=== PATIENT | male | born 1950 | race Caucasian/White ===

== ENCOUNTER → 2022-06-10 | Outpatient (CLI) | payer SELFPAY ==
[2022-06-10 13:02] LABS: AST(SGOT) 14 U/L (15-37); Alanine Aminotransfer ALT/SGPT 25 U/L (16-61); Albumin, Serum 3.5 g/dL (3.2-5.0); Alkaline Phosphatase 86 U/L (45-117); Anion Gap 3 (5-15); BUN 15 mg/dL (7-18); BUN/Creat Ratio 17.5 RATIO (10-20); Calcium,Total 9.3 mg/dL (8.5-10.1); Chloride 106 mmol/L (98-107); Cholesterol 272 mg/dL (200); Creatinine, Serum 0.86 mg/dL (0.70-1.30); EST Glomerular Filtration Rate 93 mL/min (>60); Est Glom Filt Rate - Afr Amer 112 mL/min (>60); Globulin 3.4 g/dL (2.2-4.2); Glucose 94 mg/dL (74-106); High Density Lipoprotein 71 mg/dL; Potassium 4.4 mmol/L (3.5-5.1); Protein, Total 6.9 g/dL (6.4-8.2); Sodium Level 140 mmol/L (136-145); Triglycerides 128 mg/dL; Very Low Density Lipoprotein 26 mg/dL (5-40)
== END | disposition home or self-care (01) ==
LOC: BIMLAB 10:59
PROVIDERS: PCP Internal Medicine; Referring Provider Internal Medicine; Visit Provider Internal Medicine
DX: I10 Essential (primary) hypertension (principal); E78.2 Mixed hyperlipidemia
CPT/HCPCS: 36415; 80053; 80061

== ENCOUNTER 2025-02-10 19:39 | Emergency (ER) | payer OTHER, SELFPAY ==
[2025-02-10 19:39] VITALS: BP 152/89; PULSE 59; RESP 16; TEMP 36.7; O2SAT 98; BMI 22.0
[2025-02-10 21:39] VITALS: BP 122/97; PULSE 58; O2SAT 97
--- NOTE | 2025-02-10 22:15 | EX.ED.DYSGE1 ---
HPI History of Present Illness Chief Complaint: Hypertension Narrative Narrative: Chief complaint and HPI: 74-year-old male with past medical history of HTN presents for evaluation of HTN. Patient states that he follows regularly with his primary care physician. He states he was diagnosed with hypertension about a year ago. States he is prescribed lisinopril 5 mg daily. Patient states originally he was not taking his lisinopril daily and instead taking only 3 pills a week. He told his primary care physician about this at the last appointment. Patient states since last appointment he has noticed his blood pressure has been more elevated daily and now is taking the medication as prescribed. He said given this information he will run out of his prescription before seeing his primary care physician in March. He states that the highest his SBP has been in is the 160s. Patient states that he is leaving for out of town next week and is worried about running out of medication while out of town and not being able to contact his physician. States he tried to contact her this week and did not hear anything back. He denies any fever, chills, shortness of breath, chest pain, abdominal pain, nausea, vomiting, headache, dizziness. Patient states when he takes his lisinopril regularly his blood pressure does improve. Review of systems: See HPI Medications: As listed on the chart Allergies: As listed on the chart PFSH: Per chart Vital signs: As listed on the chart. Reviewed. Physical exam: Gen: A&O x3, NAD Head: Normocephalic, atraumatic Eyes: No sclera icterus, conjunctiva clear ENT: Moist mucous membranes Neck: Trachea midline, No JVD CV: RRR, no murmurs, no peripheral edema Resp: Lungs CTA BL, no w/r/c GI: Abd soft, non-distended, non-tender, no r/r/g Musc: Full ROM, no deformity Skin: Warm, dry Neuro: Alert, oriented, grossly intact, sensation intact Psych: Cooperative, appropriate mood and affect [facility] Medical History Skin cancer Home Medications ?Medication ?Instructions ?Recorded ?Last Taken ?Type lisinopril 5 mg tablet 5 mg PO QDAY #30 tabs 02/09/25 Unknown Rx Allergy/AdvReac Type Severity Reaction Status Date / Time No Known Allergies Allergy Verified 02/10/25 19:40 Family History Mother Emphysema lung Father Prostate cancer Brother FH: kidney cancer Surgical History S/P skin cancer resection History of hernia surgery Social History adopted: No household members: spouse number of children: 4 current occupational status: employed current occupation: construction pets and animals: No sexually active: Yes Smoking Status: Never smoker Electronic Cigarette Use: not used alcohol intake: never substance use type: does not use what type of physical activity do you participate in: none jemima/adventist: Yarsanism do you feel safe at home: Yes EXAM Physical Exam Const Vital Signs: 02/10/25 19:39 02/10/25 21:39 02/10/25 21:51 Temperature 98.1 F Temperature Source Oral Pulse Rate 59 L 58 L Respiratory Rate 16 Respiratory Effort Normal Non-Labored Blood Pressure 152/89 H 122/97 H Blood Pressure Mean 110 105 Pulse Ox 98 97 Oxygen Delivery Method Room Air Room Air MDM MDM MDM Narrative Medical decision making narrative: 74-year-old male with past medical history of HTN presents for evaluation of HTN. Patient states that he follows regularly with his primary care physician. He states he was diagnosed with hypertension about a year ago. States he is prescribed lisinopril 5 mg daily. Patient states originally he was not taking his lisinopril daily and instead taking only 3 pills a week. He told his primary care physician about this at the last appointment. Patient states since last appointment he has noticed his blood pressure has been more elevated daily and now is taking the medication as prescribed. He said given this information he will run out of his prescription before seeing his primary care physician in March. He states that the highest his SBP has been in is the 160s. Patient states that he is leaving for out of town next week and is worried about running out of medication while out of town and not being able to contact his physician. States he tried to contact her this week and did not hear anything back. His blood pressure does improve with the regular lisinopril use. He currently is asymptomatic and denies any complaints. On presentation, patient's SBP in the 150s however now in the 120s. He is asymptomatic. At this point in time, I do not think any laboratory workup or imaging is needed. I will prescribe the patient with a 1 month refill of his lisinopril. He was told that he needs to check his blood pressure regularly. He needs to follow-up with his primary care physician. He needs to call the office tomorrow and let them know that I prescribed a refill. He confirmed understand the plan. Return precautions were explained. Patient able to discharge home. Impression: 1. Medication refill 2. Hypertension with history of hypertension Discharge Plan Triage Chief Complaint: Hypertension ED Provider: Demetri Mackey Dx/Rx/DC Orders Prescriptions: No Action lisinopril 5 mg tablet 5 mg PO QDAY Qty: 30 0RF Primary Care Provider: Cris Marquez Referrals: Cris Marquez MD [Primary Care Provider] - Print Language: Citizen Of [place]
[2025-02-10 22:28] VITALS: BP 120/87; PULSE 61; RESP 14; TEMP 36.7; O2SAT 99
--- OUTSIDE RECORDS SUMMARY | 2025-02-10 22:37 | XMS RPT_ITS | CCD ---
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 Cris Marquez Attending Provider Cris Marquez Referring Unavailable Cris Marquez Primary Care Unavailable Cris Marquez Attending Unavailable Cris Marquez Referring Unavailable Cris Marquez Primary Care Unavailable Cris Marquez Attending Unavailable Medications Current Medications Medication Drug Class(es) Dates Sig (Normalized) Sig (Original) Ascorbate Calcium (Vitamin C) (1 source) Start: 06-10-2022 take 500 mg by mouth once daily Ascorbate Calcium (Vitamin C) Active 500 MG PO DAILY June 10, 2022 12:00am Echinacea (1 source) Start: 06-10-2022 take 400 mg by mouth twice daily at mealtime Echinacea Active 400 MG PO TWICE A DAY June 10, 2022 12:00am administer with meals lisinopril 5 mg oral tablet (1 source) Angiotensin Converting Enzyme Inhibitor Start: 06-10-2022 take 5 mg by mouth once daily Lisinopril Active 5 MG PO DAILY 30 June 10, 2022 12:00am Vitamins A,C,E-Erdg-Bzxgbw (Preservision Areds) 14,320-226-200 zwvn-cz-wzwm capsule (1 source) Start: 06-10-2022 take 1 capsule by mouth once Vitamins A,C,A-Dsgi-Qmxqwc (Preservision Areds) 14,320-226-200 pkbv-cp-kdoy capsule Active 1 CAP PO ONCE June 10, 2022 12:00am Problems Active Problems Problem Classification Problem Date Documented Da te Episodic/Chronic Administrative/social admission (1 source) Persons encountering health services in other specified circumstances; Translations: [Other reasons for seeking consultation] 06-10-2022 Episodic Disorders of lipid metabolism (2 sources) Mixed hyperlipidemia; Translations: [Mixed hyperlipidemia] Onset: 11-26-2023 06-10-2022 Chronic Essential hypertension (3 sources) Hypertensive disorder; Translations: [Essential (primary) hypertension] Onset: 09-22-2024 06-10-2022 Chronic Other ear and sense organ disorders (1 source) Impacted cerumen; Translations: [Impacted cerumen, bilateral] 06-10-2022 Episodic Residual codes; unclassified (1 source) Immunization not carried out because of patient refusal; Translations: [Vaccination not carried out because of patient refusal] 06-10-2022 Episodic Past or Other Problems Problem Classification Problem Date Documented Da te Episodic/Chronic Other skin disorders (1 source) Disorder of the skin and subcutaneous tissue, unspecified; Translations: [Disorder of the skin and subcutaneous tissue, unspecified] Onset: 11-26-2023 Episodic Results Test Name Value Interpretation Reference Range Facility Office Visit Reporton 2024 Office Visit Report [facility] [address] [place] [address] OFFICE VISIT Date of Service: 09/07/24 MR#: [id number] Acct: [id number] Patient: JOSE GRECO Rep #: [id number] : 1950 Provider: RUTHANN NURSE Age/Sex: 74/M Location: [facility] Status: Signed Intake Vital Signs 11/09/23 08:30 09/07/24 08:22 09/07/24 08:22 09/07/24 08:36 Height 5 ft 7 in Weight: 137 lb BMI 21.4 BP 144/96 H 203/102 H 200/98 H 150/98 H Blood Pressure Location Lt brachial Lt brachial Lt brachial Lt brachial Position Sitting Sitting Sitting Sitting Respiration 14 Pulse 74 Pulse Source Monitor Temp 98.7 F Temp Source Temporal Pulse Oximetry (%) 99 Oxygen Delivery Method room air Comment machine Intake Visit Reasons: BP CHECK Chief Complaint: BLOOD PRESSURE CHECK UP Allergies No Known Allergies Allergy (Unverified 11/09/23 08:23) Have you fallen in the past year?: No Nurse's Note: Pt brought in cuff to compare accuracy. Pt's machine 203/102. My reading 200/98. Pt denies any sx's such as chest pain, blurry vision,flushing,di zziness, palpations, headaches. Previous readings shown to me on machine and states it is always much higher in office. systolic 130's-140's averaging/ diastolic 70's-80's. Todays morning reading prior to medication this morning 162/88 after taking medication and sitting for 15ish minutes 116/78. Pt sat for 10 minutes 150/98. Pt confirmed he was taking lisinopril as prescribed in the mornings. Assessment and Plan Assessment and Plan (1) High blood pressure: Status: Chronic Plan: Patient's blood pressure is high. It did improve with recheck. His home cuff reads pretty accurately. Encouraged him to take an extra dose of lisinopril when his systolic blood pressure reads above 140, which was previously discussed with him. He agreed. Will continue to monitor closely. Clinical Quality Measures Falls Risk Screening/Assistiv e Devices Have you fallen in the past year?: No 09/07/24 1313 Date Cris Marquez MD Cosigner Signature: Date (if applicable) CC: Normal [facility] Internal Medicine Office Vis caleb 11-05-2023 Internal Medicine Office Visit [facility] [address] [place] [address] [address] [place] [address] OFFICE VISIT Date of Service: 11/09/23 MR#: [id number] Acct: [id number] Name: JOSE GRECO Rep #: [id number] : 1950 Provider: Dr. Cris bateman MD Age/Sex: 73/M Location: [facility] Status: Signed Intake Vital Signs 07/21/22 08:37 11/09/23 08:30 11/09/23 09:08 Height 5 ft 7 in 5 ft 7 in Weight: 137 lb BMI 21.4 BP 144/96 H 170/98 H Blood Pressure Location Lt brachial Rt brachial Position Sitting Respiration 14 Pulse 74 Pulse Source Monitor Temp 98.7 F Temp Source Temporal Pulse Oximetry (%) 99 Oxygen Delivery Method room air Comment PCP aware Intake Visit Reasons: YEARLY Wildlife Veterinarian Required: No Is patient in pain?: No Allergies No Known Allergies Allergy (Unverified 11/09/23 08:23) Medications ???Medication ???Instructions ???Recorded ???Confirmed ???Type ascorbate calcium (vitamin C) 500 500 mg PO DAILY 06/10/22 11/09/23 History mg capsule echinacea 400 mg capsule 400 mg PO BID 06/10/22 11/09/23 History vitamins A,C,I-qmoa-wlwzoj 4,296 1 cap PO ONCE 06/10/22 11/09/23 History mcg-226 mg-90 mg capsule (PreserVision AREDS) lisinopril 5 mg tablet 5 mg PO .every other day #45 tabs 11/09/23 11/09/23 Rx PFSH Medical History Skin cancer Surgical History S/P skin cancer resection History of hernia surgery Family History Mother Emphysema lung Father Prostate cancer Brother FH: kidney cancer Social History adopted: No household members: spouse number of children: 4 current occupational status: employed current occupation: construction pets and animals: No sexually active: Yes Smoking Status: Never smoker Electronic Cigarette Use: not used alcohol intake: never substance use type: does not use what type of physical activity do you participate in: none jemima/zoroastrian: Samaritan do you feel safe at home: Yes HPI HPI Details: JOSE GRECO, is a 73 M who presents to the office today for a follow up. He is due for some routine blood work.??? He [facility].??? He previously declined any immunizations.??? He doesn't smoke and does need refills.??? He reports he is eating healthy overall and is trying to stay active. The patient has been monitoring his readings in the last couple of weeks. He wasn't checking it regularly prior to that. They have been in the 120s/70-80 range. The patient reports he doesn't have a regular schedule for his lisinopril. He reports he averages it around 2 times per week. He denies any specific criteria that makes him take it. He reports in addition to the lisinopril, he will take a blood pressure supplement. He states between the two, he will take something 5x a week. He doesn't tend to take anything on the weekends. He has been monitoring his salt intake. He reports he has a couple cups of coffee per day. He has no other questions or concerns at this time.??? ROS Const Constitutional: No body ache, chills, excessive sweating, fatigue, fever(s), frequent falls, headache(s), snoring, weakness, weight change, sleep problems or change in appetite Eyes Eyes: No blurry vision, change in vision, eye pain or Light sensitivity ENT ENT: No abnormal hearing, ear or mastoid pain, tinnitus, nasal congestion, headache(s), neck pain or sore throat Resp Respiratory: Positive for shortness of breath (with exertion); No cough, snoring or wheezing Cardio Cardiology: No chest pain at rest, chest pain with exertion, excessive sweating, shortness of breath, dyspnea on exertion, lightheadedness, orthopnea, palpitations or other (no leg swelling) Gastro GI: No abdominal pain, change in bowel habits, constipation, cramping, diarrhea, nausea/dyspepsia or vomiting Genitourinary Male: No difficulty urinating, burning urination, painful urination, urinary incontinence or urinary frequency Musc Musculoskeletal: No abnormal gait, joint pain, back pain, limited range of motion, neck pain, numbness or tingling Skin Skin: Positive for lesions; No dry skin, redness, itchy eyes, rash or wounds Neuro Neurology: No abnormal gait, abnormal hearing, dizziness, weakness, frequent falls, headache(s), memory loss, numbness, tingling or fainting Psych Psychiatric: No anxiety, No change in appetite, No depression, No memory loss and No Thoughts of harming yourself/Others Endo Endocrine: No cold intolerance, excessive sweating, fatigue, flushing, heat intolerance, increased thirst/drinking, increased hunger or weight change Aller/Imm Allergy/Immunologi c: (more content not included)... Normal [facility] Basophil percentageOrdered B y: Dr. Marquez on 06-10-2022 Bilirubin [Mass/Vol] 0.70 mg/dL 0.20-1.00 [facility] Comment on above: For patients on eltr ombopag therapy, use of Dimension [place] TBIL is not recommended. Chloride [Moles/Vol] 106 mmol/L 98-107 [facility] Cholesterol [Mass/Vol] 272 mg/dL <200 [facility] Comment on above: <200 mg/dL Desirable 200-240 mg/dL Borderline >240 mg/dL High Risk Glucose [Mass/Vol] 94 mg/dL 74-106 [facility] Potassium [Moles/Vol] 4.4 mmol/L 3.5-5.1 [facility] Protein [Mass/Vol] 6.9 g/dL 6.4-8.2 [facility] Sodium [Moles/Vol] 140 mmol/L 136-145 [facility] Triglyceride [Mass/Vol] 128 mg/dL <199 [facility] Comment on above: The drugs N-Acetylcy steine and Metamizole may falsely depress this assay.Serum Triglycerides Reference Interval Normal <150 mg/dL Borderline high 150 - 199 mg/dL High 200 - 499 mg/dL Very High > or = 500 mg/dL Laboratory - Chemistry and C hemistry - challengeOrdered By: Dr. Marquez on 06-10-2022 ALP [Catalytic activity/Vol] 86 U/L 45-117 [facility] ALT [Catalytic activity/Vol] 25 U/L 16-61 [facility] CO2 [Moles/Vol] 31.0 mmol/L 21.0-32.0 [facility] Globulin (S) [Mass/Vol] 3.4 g/dL 2.2-4.2 [facility] Urea nitrogen/Creatinine [Mass ratio] 17.5 mg/mg 10-20 [facility] No Panel InformationOrdered By: Dr. Marquez on 06-10-2022 Estimated GFR (MDRD) Amer 112 mL/min >60 [facility] Comment on above: GFR Calc Estimated GFR (MDRD) Non-Af Amer 93 mL/min >60 [facility] Comment on above: Non- GFR Calc Serum or plasma albumin jennifer urement (mass/volume)Ordered By: Dr. Marquez on 06-10-2022 Albumin [Mass/Vol] 3.5 g/dL 3.2-5.0 [facility] Serum or plasma albumin/glob ulin mass ratioOrdered By: Dr. Marquez on 06-10-2022 Albumin/Globulin [Mass ratio] 1.0 {ratio} 0.9-2.4 [facility] Serum or plasma calcium jennifer urement (mass/volume)Ordered By: Dr. Marquez on 06-10-2022 Calcium [Mass/Vol] 9.3 mg/dL 8.5-10.1 [facility] Serum or plasma cholesterol in HDL measurement (mass/volume)Ordered By: Dr. Marquez on 06-10-2022 Cholesterol in HDL [Mass/Vol] 71 mg/dL >40 [facility] Comment on above: The drugs N-Acetylcy steine and Metamizole may falsely depress this assay. Reference Range HDL <40 mg/dL Low HDL Cholesterol HDL >or= 60 mg/dL High HDL Cholesterol Serum or plasma cholesterol in VLDL measurement (mass/volume)Ordered By: Dr. Marquez on 06-10-2022 Cholesterol in VLDL [Mass/Vol] 26 mg/dL 5-40 [facility] Serum or plasma creatinine m easurement (mass/volume)Ordered By: Dr. Marquez on 06-10-2022 Creatinine [Mass/Vol] 0.86 mg/dL 0.70-1.30 [facility] Comment on above: The validity of the calculated GFR & GFRAA in patients over 70 years has not been determined. Clinical correlation is essential. Serum or plasma low density lipoprotein (LDL) cholesterol measurement (mass/volume)Ordered By: Dr. Marquez on 06-10-2022 Cholesterol in LDL [Mass/Vol] 175 mg/dL 0-130 [facility] Serum or plasma urea nitroge n measurement (mass/volume)Ordered By: Dr. Marquez on 06-10-2022 Urea nitrogen [Mass/Vol] 15 mg/dL 7-18 [facility] Thin prep Papanicolaou smear with manual screeningOrdered By: Dr. Marquez on 06-10-2022 Thin prep Papanicolaou smear with manual screening 14 U/L 15-37 [facility] Thin prep Papanicolaou smear with manual screening 3 5-15 [facility] Vital Signs Date Time Vital Sign Value Performing Clinician Yaneth jaegery 06-10-2022 10:21-0500 Body height 170.[address] Cris Marquez Work Phone: [facility] 06-10-2022 10:21-0500 Body mass index (BMI) [Ratio] 21.7 kg/m2 Dr. Cris Marquez Work Phone: [facility] 06-10-2022 10:21-0500 Body temperature 95.9 [degF] Dr. Cris Marquez Work Phone: [facility] 06-10-2022 10:21-0500 Body weight 63.[address] Cris Marquez Work Phone: [facility] 06-10-2022 10:21-0500 Diastolic blood pressure 104 mm[Hg] Dr. Cris Marquez Work Phone: [facility] 06-10-2022 10:21-0500 Heart rate 64 /min Dr. Cris Marquez Work Phone: [facility] 06-10-2022 10:21-0500 Respiratory rate 18 /min Dr. Cris Marquez Work Phone: [facility] 06-10-2022 10:21-0500 SaO2% (BldA) [Mass fraction] 96 % Dr. Cris Marquez Work Phone: [facility] 06-10-2022 10:21-0500 Systolic blood pressure 144 mm[Hg] Dr. Cris Marquez Work Phone: [facility] Encounters Encounter Date Encounter Type Care Provider Facility Start: 09-07-2024 End: 09-07-2024 ambulatory Cris Marquez Facility:[facility] Start: 11-09-2023 End: 11-09-2023 ambulatory Cris Marquez Facility:[facility] Start: 06-10-2022 End: 06-10-[address] Cris Marquez Work Phone: [facility] Work Phone: Start: 06-10-2022 End: 06-10-[address] Cris Marquez Work Phone: [facility] Start: 06-10-2022 End: 06-10-[address] Cris Marquez Work Phone: [facility] Payers Date Payer Category Payer Self-pay [id number] 2023 Unknown 114 Unknown [id number] Unknown [id number] Social History Date Type Detail Facility Start: 06-10-2022 Tobacco smoking stat [facility] Unknown if ever smoked [facility] Start: 1950 Sex Assigned At Male [facility] Chief complaint+Reason for visit Narrative Note Date & Type Note Facility Chief complaint+Reason for visit Narrative Reason for Visit Immunization decline d Establishing care with new doctor, encounter for Mixed hyperlipidemia Essential hypertension [facility] Work Phone: Evaluation note Note Date & Type Note Facility Evaluation note Diagnosis Onset Date Immunization declined noneac tive Establishing care with new d octor, encounter for noneactive Mixed hyperlipidemia noneact ruy Essential hypertension nonea ctive [facility] Work Phone: Family History No Family History Records Found Relationship Condition Age at Onset Recorded Date/T maia mother Pulmonary emphysema Unknown father Malignant neoplasm of prostate Unknown brother Family history of ma lignant neoplasm of kidney Unknown Summary Purpose Advance Directives No Advanced Directives Records Found Additional Source Comments Care Teams (unrecognized sec tion and content) Team Status: Active Member Role Status Dates Dr. Cris Marquez MD Primary Care Provider Active Team Status: Inactive Member Role Status Dates Dr. Cris Marquez MD Attending Provider Active Team Status: Inactive Member Role Status Dates Dr. Cris Marquez MD Primary Care Pro vider, Attending Provider, Referring Provider Active Goals (unrecognized section and content) Goals may be documented in a n alternate section (unrecognized sect ion and content) No Status Records Found INFORMATION SOURCE (unrecogn ized section and content) DATE CREATED AUTHOR 09/24/2024 [facility] FOR RECORDS PERTAINING TO PATIENTS WHO ARE OR HAVE BEEN ENROLLED IN A CHEMICAL DEPENDENCY/SUBSTANCEABUSE PROGRAM, SOME INFORMATION MAY BE OMITTED. This clinical summary was aggregated from multiple sources. Caution should be exercised in using it in the provision of clinical care. This summary normalizes information from multiple sources, and as a consequence, information in this document may materially change the coding, format and clinical context of patient data. In addition, data may be omitted in some cases. CLINICAL DECISIONS SHOULD BE BASED ON THE PRIMARY CLINICAL RECORDS. [employer] provides no warranty or guarantee of the accuracy or completeness of information in this document.
== END 2025-02-10 22:38 | disposition home or self-care (01) ==
LOC: ED 22:35
PROVIDERS: Emergency Provider Surgery; PCP Internal Medicine; Visit Provider Surgery
DX: Z76.0 Encounter for issue of repeat prescription (principal); I10 Essential (primary) hypertension; Z79.899 Other long term (current) drug therapy
CPT/HCPCS: 99282

== ENCOUNTER → 2025-03-28 | Outpatient (CLI) | payer OTHER, SELFPAY ==
[2025-03-28 17:56] LABS: Hematocrit 45.0 % (40-54); Hemoglobin 14.5 g/dL (13.0-16.5); Mean Corp Hgb Conc 32.2 g/dL (32-36); Mean Corpuscular Volume 94.7 fL (80-94); Mean Platelet Vol. 8.9 fl (6.2-12.0); Platelet Count 296 K/mm3 (150-450); RBC Distribution Width CV 13.0 % (11.6-14.6); RBC Distribution Width SD 45.5 fl (35.1-43.9); Red Blood Count 4.75 M/mm3 (4.6-6.2); White Blood Count 6.7 K/mm3 (4.4-11.0)
[2025-03-28 18:17] LABS: AST(SGOT) 20 U/L (<=37); Alanine Aminotransfer ALT/SGPT 16 U/L (<=46); Albumin, Serum 4.0 g/dL (3.4-4.8); Alkaline Phosphatase 84 U/L (40-129); Anion Gap 8 (5-15); BUN 13 mg/dL (4-19); BUN/Creat Ratio 15.7 RATIO (10-20); Calcium,Total 9.5 mg/dL (7.6-11.0); Carbon Dioxide 27.7 mmol/L (21.0-32.0); Chloride 105 mmol/L (98-108); Cholesterol 281 mg/dL (<=200); Globulin 2.8 g/dL (2.2-4.2); Glucose 95 mg/dL (70-99); Low Density Lipoprotein Calc. 183 mg/dL; Potassium 4.1 mmol/L (3.3-5.1); Triglycerides 124 mg/dL; Very Low Density Lipoprotein 25 mg/dL (5-40); cholesterol:hdl ratio screen 3.68
== END | disposition home or self-care (01) ==
LOC: MTLAB 15:11
PROVIDERS: PCP Internal Medicine; Referring Provider Internal Medicine; Visit Provider Internal Medicine
DX: I10 Essential (primary) hypertension (principal); E78.2 Mixed hyperlipidemia
CPT/HCPCS: 36415; 80053; 80061; 85027